=== PATIENT | female | born 1970 | race Caucasian/White ===

== ENCOUNTER → 2018-08-02 | Outpatient (CLI) | payer BC ==
--- NOTE | 2018-08-02 15:20 | US ---
EXAMINATION TYPE: US thyroid st tissue head/neck DATE OF EXAM: 08/02/2018 COMPARISON: US CLINICAL HISTORY: E04.1 SINGLE THYROID NODULE. GLAND SIZE: Right Lobe: 3.8 x 0.7 x 0.9 cm Overall Parenchyma: homogenous Left Lobe: 3.7 x 0.9 x 0.9 cm Overall Parenchyma: homogeneous Isthmus Thickness: 0.2 cm NODULES RIGHT: # of nodules measured on right: 0 LEFT: # of nodules measured on left: 2 1. 0.3 X 0.3 x 0.3 cm hypoechoic cystic nodule at the mid pole with well-defined margins; . This n odule is wider than tall and shows no intranodular vascularity. Prior size: 0.4 cm 2. 0.3 X 0.2 x 0.3 cm hypoechoic cystic nodule at the mid pole with well-defined margins; . This no dule is wider than tall and shows no intranodular vascularity. Prior size: not on prior ISTHMUS: # of nodules measured in the isthmus: 0 Bilateral neck scanned, no evidence of lymphadenopathy. Nodules as described. IMPRESSION: Subcentimeter thyroid nodules but no evidence of a thyroid nodule 1 cm or greater.
== END | disposition home or self-care (01) ==
LOC: RADUSWWP 14:53
PROVIDERS: ATTEND Family Medicine
DX: E04.2 Nontoxic multinodular goiter (principal)
CPT/HCPCS: 76536

== ENCOUNTER → 2018-08-25 | Outpatient (CLI) | payer BC ==
--- NOTE | 2018-08-29 07:58 | MM ---
Reason for exam: screening (asymptomatic). Last mammogram was performed 3 years and 3 months ago. History: Took hormonal contraceptives for 20 years. Physical Findings: A clinical breast exam by your physician is recommended on an annual basis and results should be correlated with mammographic findings. MG 3D Screening Mammo W/Cad Bilateral CC and MLO view(s) were taken. Prior study comparison: May 28, 2015, bilateral MG 3d screening mammo w/cad. There is chronic nodularity bilaterally. No significant changes when compared with prior studies. ASSESSMENT: Benign, BI-RAD 2 RECOMMENDATION: Routine screening mammogram of both breasts in 1 year.
== END | disposition home or self-care (01) ==
LOC: RADMAMWWP 14:01
PROVIDERS: ATTEND Family Medicine
DX: Z12.31 Encounter for screening mammogram for malignant neoplasm of breast (principal)
CPT/HCPCS: 77063; 77067

== ENCOUNTER 2018-11-15 07:35 | Emergency (ER) | payer BC ==
[2018-11-15 07:40] VITALS: PULSE 80; TEMP 98.3
--- NOTE | 2018-11-15 07:54 | ED ---
Abdominal Pain HPI - General Chief Complaint: Abdominal Pain Stated Complaint: Flank pain Time Seen by Provider: 11/15/18 07:41 Source: patient, family Mode of arrival: ambulatory - History of Present Illness Initial Comments: 47yo female history of diabetes and hypertension presenting today for chief complaint of left flank pain. Patient states around 3 AM while she is playing video game she noticed left flank pain. She states it comes and goes increasing decreasing in intensity. She states that at its maxiumum is is 10/10. Patient denies any radiation of the pain. She states she has had an episode of vomiting. Denies diarrhea. Denies fever chills night sweats. Patient denies known history of kidney stones. Patient denies any hematuria dysuria urgency or frequency. Remaining review of systems negative upon arrival patient appears well signs of acute distress or discomfort. Vital signs within acceptable limits - Related Data Home Medications Medication Instructions Recorded Confirmed Fexofenadine HCl [[place] Allergy] 180 mg PO HS 11/15/18 11/15/18 Hydrochlorothiazide 25 mg PO DAILY 11/15/18 11/15/18 Liraglutide [Saxenda] 1.8 mg SQ HS 11/15/18 11/15/18 Thyroid,Pork [[place] Thyroid] 120 mg PO DAILY 11/15/18 11/15/18 buPROPion HCL [Wellbutrin XL] 300 mg PO HS 11/15/18 11/15/18 Previous Rx's Medication Instructions Recorded Ketorolac [Toradol] 10 mg PO Q8HR PRN 7 Days #21 tab 11/15/18 Ondansetron Odt [Zofran Odt] 4 mg PO Q8HR PRN 7 Days #21 tab 11/15/18 Allergies Allergy/AdvReac Type Severity Reaction Status Date / Time hydrocodone Allergy Rash/Hives Verified 11/15/18 08:18 Review of Systems ROS Statement: Those systems with pertinent positive or pertinent negative responses have been documented in the HPI. ROS Other: All systems not noted in ROS Statement are negative. Past Medical History Past Medical History: Diabetes Mellitus History of Any Multi-Drug Resistant Organisms: C-DIFF Past Surgical History: Ablation Past Psychological History: Anxiety, Depression Smoking Status: Never smoker Past Alcohol Use History: None Reported Past Drug Use History: None Reported General Exam - General Exam Comments Initial Comments: General: The patient is awake and alert, in no distress, and does not appear acutely ill. Eye: +3 mm pupils are equal, round and reactive to light, extra-ocular movements are intact. No nystagmus. There is normal conjunctiva bilaterally. No signs of icterus. Ears, nose, mouth and throat: There are moist mucous membranes and no oral lesions. Neck: The neck is supple, there is no tenderness or JVD. Cardiovascular: There is a regular rate and rhythm. No murmur, rub or gallop is appreciated. Respiratory: Lungs are clear to auscultation, respirations are non-labored, breath sounds are equal. No wheezes, stridor, rales, or rhonchi. Gastrointestinal: Soft, non-distended, non-tender abdomen without masses or organomegaly noted. There is no rebound or guarding present. Patient points to Musculoskeletal: Normal ROM, no tenderness. Strength 5/5. Sensation intact. Pulses equal bilaterally 2+. Neurological: A&O x 3. CN II-XII intact, There are no obvious motor or sensory deficits. Coordination appears grossly intact. Speech is normal. Skin: Skin is warm and dry and no rashes or lesions are noted. Psychiatric: Cooperative, appropriate mood & affect, normal judgment. Course Vital Signs 11/15/18 11/15/18 07:38 09:25 Temperature 98.3 F Pulse Rate 80 80 Respiratory 16 17 Rate Blood Pressure 139/88 112/75 O2 Sat by Pulse 99 94 L Oximetry Medical Decision Making - Medical Decision Making 47-year-old female presenting for evaluation of left flank pain. Patient's his tory of hypertension blood pressure controlled upon arrival. Patient does not appear in acute distress. Patient's history concerning for renal calculus. UA revealed gross hematuria, HCG (-). Patient sent to CT without contrast. This revealed a 6 mm left ureter stone with mild hydronephrosis no evidence of septic stone or significant stranding. Patient afebrile. Symptoms controlled with toradol/zofran. Patient states she feels stable for discharge. This time the patient's temperature discharge with outpatient neurological follow-up, Toradol and Zofran with return for intractable pain, fevers or flulike symptoms. Patient verbalized understanding of return parameters. Patient was discharged appearing well after discussing case with Dr. Morrison - Lab Data Result diagrams: 11/15/18 08:10 11/15/18 08:10 Lab Results 11/15/18 11/15/18 11/15/18 Range/Units 08:10 08:10 08:10 WBC 12.9 H (3.8-10.6) k/uL RBC 4.70 (3.80-5.40) m/uL Hgb 13.8 (11.4-16.0) gm/dL Hct 39.5 (34.0-46.0) % MCV 84.0 (80.0-100.0) fL MCH 29.3 (25.0-35.0) pg MCHC 34.9 (31.0-37.0) g/dL RDW 18.0 H (11.5-15.5) % Plt Count 213 (150-450) k/uL Neutrophils % 86 % Lymphocytes % 9 % Monocytes % 2 % Eosinophils % 1 % Basophils % 0 % Neutrophils # 11.1 H (1.3-7.7) k/uL Lymphocytes # 1.2 (1.0-4.8) k/uL Monocytes # 0.3 (0-1.0) k/uL Eosinophils # 0.2 (0-0.7) k/uL Basophils # 0.0 (0-0.2) k/uL Hyperchromasia Slight Poikilocytosis Moderate Anisocytosis Slight Sodium 139 (137-145) mmol/L Potassium 4.0 (3.5-5.1) mmol/L Chloride 100 (98-107) mmol/L Carbon Dioxide 27 (22-30) mmol/L Anion Gap 12 mmol/L BUN 16 (7-17) mg/dL Creatinine 0.96 (0.52-1.04) mg/dL Est GFR (CKD-EPI)AfAm 82 (>60 ml/min/1.73 sqM) Est GFR (CKD-EPI)NonAf 71 (>60 ml/min/1.73 sqM) Glucose 194 H (74-99) mg/dL Calcium 9.5 (8.4-10.2) mg/dL Total Bilirubin 2.2 H (0.2-1.3) mg/dL AST 37 H (14-36) U/L ALT 35 (9-52) U/L Alkaline Phosphatase 110 (38-126) U/L Total Protein 7.5 (6.3-8.2) g/dL Albumin 4.6 (3.5-5.0) g/dL Amylase 50 (30-110) U/L Lipase 58 (23-300) U/L Urine Color Urine Appearance (Clear) Urine pH (5.0-8.0) Ur Specific Index (1.001-1.035) Urine Protein (Negative) Urine Glucose (UA) (Negative) Urine Ketones (Negative) Urine Blood (Negative) Urine Nitrite (Negative) Urine Bilirubin (Negative) Urine Urobilinogen (<2.0) mg/dL Ur Leukocyte Esterase (Negative) Urine RBC (0-5) /hpf Urine WBC (0-5) /hpf Ur Squamous Epith Cells (0-4) /hpf Urine Bacteria (None) /hpf Urine Mucus (None) /hpf Urine HCG, Qual Not Detected (Not Detectd) 11/15/18 Range/Units 08:10 WBC (3.8-10.6) k/uL RBC (3.80-5.40) m/uL Hgb (11.4-16.0) gm/dL Hct (34.0-46.0) % MCV (80.0-100.0) fL MCH (25.0-35.0) pg MCHC (31.0-37.0) g/dL RDW (11.5-15.5) % Plt Count (150-450) k/uL Neutrophils % % Lymphocytes % % Monocytes % % Eosinophils % % Basophils % % Neutrophils # (1.3-7.7) k/uL Lymphocytes # (1.0-4.8) k/uL Monocytes # (0-1.0) k/uL Eosinophils # (0-0.7) k/uL Basophils # (0-0.2) k/uL Hyperchromasia Poikilocytosis Anisocytosis Sodium (137-145) mmol/L Potassium (3.5-5.1) mmol/L Chloride (98-107) mmol/L Carbon Dioxide (22-30) mmol/L Anion Gap mmol/L BUN (7-17) mg/dL Creatinine (0.52-1.04) mg/dL Est GFR (CKD-EPI)AfAm (>60 ml/min/1.73 sqM) Est GFR (CKD-EPI)NonAf (>60 ml/min/1.73 sqM) Glucose (74-99) mg/dL Calcium (8.4-10.2) mg/dL Total Bilirubin (0.2-1.3) mg/dL AST (14-36) U/L ALT (9-52) U/L Alkaline Phosphatase (38-126) U/L Total Protein (6.3-8.2) g/dL Albumin (3.5-5.0) g/dL Amylase (30-110) U/L Lipase (23-300) U/L Urine Color Light Red Urine Appearance Turbid H (Clear) Urine pH 5.0 (5.0-8.0) Ur Specific Index 1.022 (1.001-1.035) Urine Protein 1+ H (Negative) Urine Glucose (UA) Negative (Negative) Urine Ketones Trace H (Negative) Urine Blood Large H (Negative) Urine Nitrite Negative (Negative) Urine Bilirubin Negative (Negative) Urine Urobilinogen <2.0 (<2.0) mg/dL Ur Leukocyte Esterase Trace H (Negative) Urine RBC >182 H (0-5) /hpf Urine WBC 4 (0-5) /hpf Ur Squamous Epith Cells 12 H (0-4) /hpf Urine Bacteria Occasional H (None) /hpf Urine Mucus Moderate H (None) /hpf Urine HCG, Qual (Not Detectd) Disposition Clinical Impression: Left ureteral calculus, Left flank pain Disposition: HOME SELF-CARE Condition: Good Instructions (If sedation given, give patient instructions): Kidney Stones (ED) Additional Instructions: Please use medication as discussed. Please follow-up with family doctor in the next 2 days, and urology as discussed. Please return to emergency room if the symptoms increase or worsen or for any other concerns-fever, intractable pain. Prescriptions: Ketorolac [Toradol] 10 mg PO Q8HR PRN 7 Days #21 tab PRN Reason: Severe Pain Ondansetron Odt [Zofran Odt] 4 mg PO Q8HR PRN 7 Days #21 tab PRN Reason: Nausea Is patient prescribed a controlled substance at d/c from ED?: No Referrals: Bakari Waters MD [Primary Care Provider] - 1-2 days David Ramos MD [STAFF PHYSICIAN] - 1-2 days Time of Disposition: 09:16
[2018-11-15] MEDS ORDERED: KETOROLAC 30 MG/ML 1 ML VIAL IVP STA (08:02)
[2018-11-15] MEDS ORDERED: SODIUM CHLORIDE 0.9% 500 ML 500 ML IV ONE (08:03)
[2018-11-15] MEDS ORDERED: ONDANSETRON 4 MG/2 ML VIAL IVP STA (08:17)
[2018-11-15 08:24] LABS: Appearance,Urine Turbid (Clear); Bacteria,Urine Occasional /hpf; Bilirubin,Urine Negative (Negative); Blood,Urine Large (Negative); Color,Urine Light Red; Glucose,Urine (UA) Negative (Negative); Ketones,Urine Trace (Negative); Leukocyte Esterase,Urine Trace (Negative); Mucus,Urine Moderate /hpf; Nitrite,Urine Negative (Negative); Protein,Urine 1+ (Negative); RBC,Urine >182 /hpf (0-5); Specific Gravity,Urine 1.022 (1.001-1.035); Squamous Epithelial Cell,Urine 12 /hpf (0-4); Urobilinogen,Urine <2.0 mg/dL (<2.0); WBC,Urine 4 /hpf (0-5)
[2018-11-15 08:25] LABS: Albumin 4.6 g/dL (3.5-5.0); Calcium 9.5 mg/dL (8.4-10.2); Total Bilirubin 2.2 mg/dL (0.2-1.3); Total Protein 7.5 g/dL (6.3-8.2)
[2018-11-15 08:28] LABS: Anisocytosis Slight; Basophils % (A) 0 %; Eosinophils # (A) 0.2 k/uL (0-0.7); Eosinophils % (A) 1 %; HCT 39.5 % (34.0-46.0); HGB 13.8 gm/dL (11.4-16.0); Hyperchromasia Slight; Lymphocytes # (A) 1.2 k/uL (1.0-4.8); Lymphocytes % (A) 9 %; MCH 29.3 pg (25.0-35.0); MCHC 34.9 g/dL (31.0-37.0); Mean Platelet Volume 8.6; Monocytes # (A) 0.3 k/uL (0-1.0); Monocytes % (A) 2 %; Neutrophils # (A) 11.1 k/uL (1.3-7.7); Neutrophils % (A) 86 %; Platelet Count 213 k/uL (150-450); Poikilocytosis Moderate; WBC 12.9 k/uL (3.8-10.6)
--- NOTE | 2018-11-15 09:04 | CT ---
EXAMINATION TYPE: CT abdomen pelvis wo con DATE OF EXAM: 11/15/2018 HISTORY: Lt mid abd pain CT DLP: 860.6 mGycm. Automated Exposure Control for Dose Reduction was Utilized. TECHNIQUE: CT scan of the abdomen and pelvis is performed without oral or IV contrast. COMPARISON: CT abdomen March 06, 2013 FINDINGS: Within the limitations of a non-contrast study, the following observations are made. LUNG BASES: No significant abnormality is appreciated. LIVER/GB: Remains diffusely low dense consistent with diffuse fatty infiltration. PANCREAS: No significant abnormality is seen. SPLEEN: Splenomegaly is redemonstrated measuring 15.6 cm long axis axial image 42. ADRENALS: No significant abnormality is seen. KIDNEYS: No right-sided renal calculi or hydronephrosis. There is 6 mm calculus in the proximal left ureter coronal image 54 and axial image 71 causing asymmetric mild to moderate left-sided hydronephro sis. No intraluminal calculi are seen in poorly distended bladder. Scattered pelvic phleboliths BOWEL: Incidental normal-appearing appendix from cecum in the right pelvis. GENITAL ORGANS: Anteverted uterus. LYMPH NODES: No greater than 1cm abdominal or pelvic lymph nodes are appreciated. OSSEOUS STRUCTURES: No significant abnormality is seen. OTHER: No significant additional abnormality is seen. IMPRESSION: There is 6 mm calculus proximal left ureter causing [id number] left-sided hydroneph rosis.
[2018-11-15 09:30] VITALS: BP 112/75; RESP 17
== END 2018-11-15 09:38 | disposition home or self-care (01) ==
LOC: EC 07:35
DX: N13.2 Hydronephrosis with renal and ureteral calculous obstruction (principal); E11.9 Type 2 diabetes mellitus without complications; F32.9 Major depressive disorder, single episode, unspecified; F41.9 Anxiety disorder, unspecified; Z79.84 Long term (current) use of oral hypoglycemic drugs; Z79.899 Other long term (current) drug therapy; Z88.5 Allergy status to narcotic agent
CPT/HCPCS: 36415; 80053; 82150; 83690; 85025; 81001; 81025; 74176; 99284; 96374; 96375; 96361; J2405; J1885

== ENCOUNTER → 2018-11-21 | Outpatient (CLI) | payer BC ==
--- NOTE | 2018-11-22 10:52 | XR ---
KUB HISTORY: Calculus of ureter, left-sided pain KUB submitted on 2 images and correlated to prior CT 11/15/2018 Multiple calcifications within the pelvis likely represent phleboliths. At the level of left L3 trans verse process on one of the 2 views there is a density measuring approximately 4 mm, findings could r epresent ureteral calculus. No evident pneumoperitoneum or bowel obstruction. Mild spinal curvature p resent. Lung bases are clear. IMPRESSION: Possible left ureteral calculus.
== END | disposition home or self-care (01) ==
LOC: RADXRMAIN 15:43
PROVIDERS: ATTEND Urology
DX: N20.1 Calculus of ureter (principal)
CPT/HCPCS: 74018

== ENCOUNTER → 2019-01-19 | Outpatient (CLI) | payer BC ==
--- NOTE | 2019-01-19 13:39 | US ---
EXAMINATION TYPE: US kidneys/renal and bladder DATE OF EXAM: 01/19/2019 COMPARISON: CT, US CLINICAL HISTORY: Hx of hydronephrosis R93.4; Post left ureteral stone removal EXAM MEASUREMENTS: Right Kidney: 10.9 x 5.5 x 3.8 cm Left Kidney: 11.2 x 6.1 x 6.2 cm Post Void Residual Volume: not measured as bladder is minimally distended Right Kidney: No hydronephrosis or masses seen Left Kidney: No hydronephrosis or masses seen Bladder: wnl Bilateral Jets seen: only left ureteral jet was seen within 3 minute observation There is no evidence for hydronephrosis at this point in time. No nephrolithiasis is seen. No estefania s are identified. The urinary bladder is anechoic. IMPRESSION: No distinct abnormality seen.
== END | disposition home or self-care (01) ==
LOC: RADUSWWP 12:28
PROVIDERS: ATTEND Urology
DX: R93.49 Abnormal radiologic findings on diagnostic imaging of other urinary organs (principal)
CPT/HCPCS: 76770

== ENCOUNTER 2022-07-21 06:49 | Day surgery (SDC) | payer BC ==
[2022-07-16 12:51] VITALS: BMI 41.1
[~2022-07-21 06:49] MED LIST: LACTATED RINGERS 1,000 ML IV SCH
[2022-07-21 07:20] LABS: Glucose,Whole Blood 33 mg/dL (70-110)
[2022-07-21 07:22] LABS: Glucose,Whole Blood 138 mg/dL (70-110)
[2022-07-21] MEDS ORDERED: PROPOFOL 10 MG/ML 20 ML VIAL IV ONE (08:06)
--- NOTE | 2022-07-21 08:24 | P.PCN ---
Date of Procedure: 07/21/22 Procedure(s) Performed: BRIEF HISTORY: Patient is a 51-year-old pleasant white female scheduled for an elective colonoscopy as a part of screening for colon cancer and positive cologuard. PROCEDURE PERFORMED: Colonoscopy. PREOPERATIVE DIAGNOSIS: Screening for colon cancer/positive cologuard. IV sedation per Anesthesia. PROCEDURE: After informed consent was obtained, the patient, was brought into the endoscopy unit. IV sedation was administered by Anesthesia under continuous monitoring. Digital rectal examination was normal. Initially the Olympus CF-160 flexible video colonoscope was then inserted in the rectum, gradually advanced into the cecum without any difficulty. Careful examination was performed as the scope was gradually being withdrawn. Ileocecal valve and the appendiceal orifice were visualized and appeared normal. Prep was excellent. Mucosa of the cecum, ascending colon, transverse colon, descending colon, sigmoid colon, and rectum appeared normal. Retroflexion was performed in the rectum and no lesions were seen. The patient tolerated the procedure well. IMPRESSION: Normal-appearing colon from rectum to cecum with no evidence of colorectal neoplasia . RECOMMENDATIONS: Findings of this examination were discussed with the patient as well as his family.. She was advised to have a repeat screening colonoscopy in 10 years.
[2022-07-21 09:06] VITALS: RESP 16
[2022-07-21 09:08] VITALS: TEMP 97.9
[2022-07-21 09:21] VITALS: BP 138/90; PULSE 75
== END 2022-07-21 09:30 | disposition home or self-care (01) ==
LOC: ORWHC2ENDO 06:49
PROVIDERS: ATTEND Internal Medicine Gastroenterology
DX: R19.5 Other fecal abnormalities (principal); I10 Essential (primary) hypertension; E11.9 Type 2 diabetes mellitus without complications; Z79.84 Long term (current) use of oral hypoglycemic drugs; Z98.890 Other specified postprocedural states; Z79.899 Other long term (current) drug therapy
CPT/HCPCS: 81025; 45378; J2704

== ENCOUNTER → 2022-12-01 | Outpatient (CLI) | payer BC ==
--- NOTE | 2022-12-02 07:40 | MM ---
Reason for Exam: Screening (asymptomatic). Last mammogram was performed 4 year(s) and 4 month(s) ago. Patient History: Menarche at age 13. First Full-Term at age 23. Perimenopausal. Hormonal Contraceptives for 20 years until age 35. Risk Values: Dinora 5 year model risk: 0.9%. NCI Lifetime model risk: 8.0%. Prior Study Comparison: 08/31/2012 Left Diagnostic Mammogram, [facility]. 05/28/2015 Bilateral Screening Mammogram, [facility]. 08/25/2018 Bilateral Screening Mammogram, [facility]. Tissue Density: The breast tissue is heterogeneously dense. This may lower the sensitivity of mammography. Findings: Analyzed By CAD. There is no suspicious group of microcalcifications or new suspicious mass in either breast. Benign appearing calcifications within both breasts. Overall Assessment: Benign, BI-RAD 2 Management: Screening Mammogram of both breasts in 1 year. A clinical breast exam by your physician is recommended on an annual basis and results should be correlated with mammographic findings. Note on Dinora scores and lifetime risk: 1. A Dinora score greater than 3% is considered moderate risk. If this is the case, consider specialist referral to assess eligibility for a risk reducing agent. If overall lifetime risk for the development of breast cancer is 20% or higher, the patient may qualify for future screening with alternating mammogram and breast MRI. Electronically signed and approved by: Negro Suero D.O.
== END | disposition home or self-care (01) ==
LOC: RADMAMWWP 15:13
PROVIDERS: ATTEND Family Medicine
DX: Z12.31 Encounter for screening mammogram for malignant neoplasm of breast (principal)
CPT/HCPCS: 77063; 77067

== ENCOUNTER → 2023-06-19 | Outpatient (CLI) | payer BC ==
[2023-06-19 09:28] LABS: Basophils % (A) 0 %; Eosinophils % (A) 1 %; HCT 34.1 % (34.0-46.0); Lymphocytes # (A) 1.1 k/uL (1.0-4.8); Lymphocytes % (A) 25 %; MCH 30.8 pg (25.0-35.0); MCHC 35.2 g/dL (31.0-37.0); MCV 87.5 fL (80.0-100.0); Mean Platelet Volume 8.8; Monocytes # (A) 0.2 k/uL (0-1.0); Monocytes % (A) 4 %; Neutrophils # (A) 3.2 k/uL (1.3-7.7); Neutrophils % (A) 69 %; Platelet Count 174 k/uL (150-450); Poikilocytosis Slight; RDW 15.7 % (11.5-15.5); WBC 4.6 k/uL (3.8-10.6)
== END | disposition home or self-care (01) ==
LOC: LABWHC1 08:41
PROVIDERS: ATTEND Family Medicine
DX: R71.8 Other abnormality of red blood cells (principal)
CPT/HCPCS: 36415; 85025

== ENCOUNTER → 2023-06-21 | Outpatient (CLI) | payer BC ==
[2023-06-21 07:44] LABS: African American GFR (CKD) >90 (>60 ml/min/1.73 sqM); Blood Urea Nitrogen 9 mg/dL (7-17); Non-African American GFR(CKD) >90 (>60 ml/min/1.73 sqM)
--- NOTE | 2023-06-21 09:34 | CT ---
EXAMINATION TYPE: CT abdomen pelvis w con CT DLP: 1173 mGycm, Automated exposure control for dose reduction was used. DATE OF EXAM: 06/21/2023 9:22 AM COMPARISON: 11/15/2018 CLINICAL INDICATION:Female, 52 years old with history of R10.13 EPIGASTRIC PAIN; abdominal and lower back pain TECHNIQUE: Axial CT abdomen pelvis w con;Sagittal and coronal reformats were created on a separate w orkstation. Contrast used:100 mL of Isovue 300 with IV Contrast, (none if empty) Oral contrast used: with Oral Contrast (none if empty) FINDINGS: LOWER CHEST: Unremarkable ABDOMEN LIVER: Unremarkable GALLBLADDER AND BILE DUCTS: Unremarkable. PANCREAS: Unremarkable. SPLEEN: Unremarkable. ADRENAL GLANDS: Unremarkable. KIDNEYS AND URETERS: No evidence of hydronephrosis or renal calculus. The ureters are unremarkable. PELVIS BLADDER: Unremarkable REPRODUCTIVE: Fibroid uterus with coarse calcifications. ABDOMEN & PELVIS STOMACH AND BOWEL: No evidence of bowel obstruction. A Small hiatal hernia. Appendix is visualized an d normal. Scattered colonic diverticula are present. PERITONEUM/RETROPERITONEUM: No evidence of pneumoperitoneum or free fluid. VASCULATURE: No evidence of aortic aneurysm. MUSCULOSKELETAL: No acute osseous abnormalities LYMPH NODES: No gross evidence for lymphadenopathy. SOFT TISSUE/ABDOMINAL WALL: Fat-containing umbilical hernia. IMPRESSION: 1. No evidence for acute abdominal process. 2. Small hiatal hernia. 3. Fibroid uterus. 4. Colonic diverticulosis.
== END | disposition home or self-care (01) ==
LOC: RADCTMAIN 06:58
PROVIDERS: ATTEND Family Medicine
DX: K44.9 Diaphragmatic hernia without obstruction or gangrene (principal); K57.30 Diverticulosis of large intestine without perforation or abscess without bleeding; D25.9 Leiomyoma of uterus, unspecified
CPT/HCPCS: 82565; 84520; 74177; 36415; Q9967

== ENCOUNTER → 2023-07-12 | Outpatient (CLI) | payer BC ==
--- NOTE | 2023-07-12 15:28 | NM ---
EXAMINATION TYPE: NM hepatobiliary w CCK DATE OF EXAM: 07/12/2023 COMPARISON: CT 06/21/2023 CLINICAL INDICATION: Female, 52 years old with history of R10.9 ABDOMINAL PAIN; TECHNIQUE: After the intravenous administration of 5.26 mCi Tc 99m Mebrofenin hepatobiliary scintigra phy is performed. Immediate images post injection. FINDINGS: There is satisfactory initial accumulation of tracer by the liver. The gallbladder is visualized wit hin 12 minutes. The small bowel activity is noted after CCK administration which is after the 60 min michael initial period. At one hour CCK was administered, patient was injected with 1.36 mcg of Kinevac, and gallbladder ejection fraction is calculated at 11 %, abnormal. IMPRESSION: 1. No scintigraphic evidence for acute cholecystitis. 2. Abnormally diminished gallbladder ejection fraction measured at 11%. Findings may be seen with chr onic cholecystitis or biliary dyskinesia.
== END | disposition home or self-care (01) ==
LOC: RADNMMAIN 12:57
PROVIDERS: ATTEND Family Medicine
DX: K82.8 Other specified diseases of gallbladder (principal)
CPT/HCPCS: 78227; A9537; J2805